=== PATIENT | female | born 1960 | race Caucasian/White ===

== ENCOUNTER 2016-03-08 16:32 | Emergency (ER) | payer OTHER ==
[~2016-03-08] VITALS: Ht 157.5 cm; Wt 77.1 kg
[2016-03-08 17:56] LABS: Basophils # (auto) 0 uL; Basophils % (auto) 0.1 % (0.0-2.0); Eosinophils # (auto) 0.1 uL; Eosinophils % (auto) 0.5 % (0.0-7.0); Hematocrit 41.4 % (36.0-46.0); Hemoglobin 13.6 g/dL (12.2-16.2); Lymphocytes # (auto) 0.5 uL; Lymphocytes % (auto) 4.1 % (10.0-50.0); Mean Corpuscular Hgb Conc. 32.8 g/dL (32.0-36.0); Mean Corpuscular Volume 97.6 fL (80.0-100.0); Mean Platelet Volume 9.2 fL (7.4-10.4); Monocytes # (auto) 0.6 uL; Monocytes % (auto) 4.7 % (0.0-12.0); Neutrophils # (auto) 11.6 uL; Neutrophils % (auto) 90.6 % (37.0-80.0); Platelet Count (auto) 373 10^3/uL (140-450); Red Cell Distribution Width 13.9 % (11.6-16.0); White Blood Cell 12.8 10^3/uL (4.4-10.8)
[2016-03-08 18:15] LABS: Albumin 3.8 g/dL (3.4-5.0); BUN/Creatinine Ratio 30.5; Bilirubin, Total 0.4 mg/dL (0.2-1.0); Calcium 8.7 mg/dL (8.5-10.1); Magnesium 2.3 mg/dL (1.6-2.6); Potassium 4.3 mmol/L (3.5-5.1); Total Protein 7.4 g/dL (6.4-8.2)
[2016-03-08] MEDS ORDERED: ASPirin 325 MG TAB PO ONE (20:15)
[2016-03-08] MEDS ORDERED: cefTRIAXone W LIDOCAINE 1 GM IM IM ONE (20:15)
[2016-03-08] MEDS ORDERED: cefTRIAXone SOD 1,000 MG VL ONE (20:28)
[2016-03-08] MEDS ORDERED: LIDOCAINE 2%HCL (LOCAL ANESTH.) INJ 20ML MDV ONE (20:28)
[2016-03-08 20:59] VITALS: BP 124/79
== END 2016-03-08 21:00 | disposition home or self-care (01) ==
LOC: ER 16:35
DX: J40 Bronchitis, not specified as acute or chronic (principal); E07.9 Disorder of thyroid, unspecified; M32.9 Systemic lupus erythematosus, unspecified; M79.7 Fibromyalgia
CPT/HCPCS: 36415; 71020; 80053; 83735; 84484; 85025; 85049; 93005; 96372; 99285; J0696